=== PATIENT | female | born 1950 | race Caucasian/White ===

== ENCOUNTER 2016-10-20 05:35 | Day surgery (SDC) | payer MEDICARE ==
[~2016-10-20] VITALS: Ht 165.1 cm; Wt 112.0 kg
[~2016-10-20 05:35] MED LIST: ANTIVERT25 MG PO; COMBIVENT RESPIM4 GM INH; COZAAR50 MG PO; EXCEDRIN MIGRA1 EAC1 PO; FUROSEMIDE20 MG PO; NORCO 5-325 TA1 EACH PO; PREDNISONE20 MG PO; PROMETHAZINE HC25 M1 PO; PROVENTIL HFA6.7 GM INH; SEPTRA DS TABL1 EACH PO; VITAMIN D250000 UNIT PO; ZOFRAN ODT4 MG PO
[2016-10-20] MEDS ORDERED: BACTRIM DS TAB1 EACH PO (06:35)
--- NOTE | 2016-10-20 06:36 | NUR ---
UP TO BATHROOM. VOIDED 200ML URINE, NEGATIVE FOR STONES. BACK IN BED READING.
--- NOTE | 2016-10-20 09:01 | NUR ---
10/20/16 0900 Radha London 0854-PATIENT ARRIVED TO PACU ON 10L MASK O2 SAT 95% PATIENT NONAROUSABLE ORAL AIRWAY IN PLACE. 0858-PATIENT AROUSING RAISING LEFT ARM EYES OPENING ON COMMAND, ORAL AIRWAY REMOVED.
--- NOTE | 2016-10-20 10:45 | NUR ---
PT UP TO THE BATHROOM. 300ML VOID NOTED. PO PAIN MEDICATION GIVEN.
--- NOTE | 2016-10-20 12:05 | NUR ---
LE 0940 PT RETURNED FROM PACU. C/O URGE TO VOID. UP TO BATHROOM WITH ONE PERSON ASSIST. VOIDED 200ML RED COLORED URINE. BACK IN BED. WATER, CRACKERS AND JELLO GIVEN.
--- NOTE | 2016-10-27 11:39 | OR ---
[facility] [address] [place], [place] [address] Signed DATE OF SERVICE: 10/20/2016 PREOPERATIVE DIAGNOSIS: Left ureteral calculus. POSTOPERATIVE DIAGNOSES: Left distal ureteral calculus. Cutaneous yeast infection present on the external genitalia. NAMES OF PROCEDURES: Diagnostic cystoscopy with left retrograde pyelogram. Left semi-rigid ureteroscopy with laser lithotripsy of left ureteral calculus. Basket stone extraction of left ureteral calculus. Insertion of 6 x 24 cm contour double-J ureteral stent into the left ureter. SURGEON: El Allen MD. ANESTHESIA: General. ESTIMATED BLOOD LOSS: None. COMPLICATIONS: None. SPECIMENS: Ureteral stone fragments sent to the lab for stone analysis. INDICATIONS FOR PROCEDURE: Ms Gallegos is a very pleasant, 66-year-old female with no previous history of nephrolithiasis who presented to my clinic in approximately 2 weeks ago with a 4-day history of severe left-sided flank pain. She underwent a CAT scan on October 03, 2016, which revealed a 4 mm left mid ureteral calculus with associated mild hydronephrosis. At that time, her urine revealed no evidence of infection and the decision was made for her to attempt a trial passage of her stone. She underwent 2 followup KUBs, which revealed progressive distal migration of the stone. Late last week, the patient came in and repeat UA did reveal 75 leuks which to me was worrisome for possible urinary tract infection. At that point in time, the decision was made for the patient to undergo definitive extraction of her stone. OPERATIVE FINDINGS: On cystoscopy, there was no evidence of any suspicious masses, lesion s or stones within the bladder. The bilateral ureteral orifices are in their normal anatomic location. There is no obvious efflux of urine from the left ureteral orifice. A left retrograde pyelogram was performed, which revealed an approximately 4 mm filling defect in the distal left ureter, consistent with the known ureteral calculus. Electronically Signed By: EL ALLEN MD 10/27/16 7082 PATIENT NAME: FARIDA GALLEGOS OPERATIVE REPORT DATE OF : 50 PHYSICIAN: EL ALLEN MD REPORT #: [id number] REPORT IS CONFIDENTIAL AND NOT TO BE RELEASED WITHOUT AUTHORIZATION [facility] [address] [place] [id number] Signed The 4 mm stone was identified within the left distal ureter and fragmented using a 270 micron laser fiber without difficulty. The stone fragments were then extracted 1 by 1 from the ureter. A 6 x 24 cm contour double-J ureteral stent was inserted into the left ureter under direct visualization without difficulty. Examination of the external genitalia revealed a significant amount of well-delineated erythema in the vaginal area as well as moving to the bilateral groin areas, consistent with a cutaneous yeast infection. DESCRIPTION OF PROCEDURE: After informed consent was obtained. The patient was taken to the operating room. She was transferred from [facility] to operating table where general anesthesia was induced. She was placed in the dorsal lithotomy position. Her genitalia were prepped and draped in sterile fashion. A cystoscope was inserted through the urethra into her bladder and a diagnostic cystoscopy was performed. Please see above findings. The cone-tipped catheter was advanced to the level of the opening of the left ureteral orifice and left retrograde pyelogram was performed. Please see above findings. I then removed the cystoscope and then inserted a semi-rigid ureteroscope. The ureteroscope was easily passed into the distal left ureter and distal left diagnostic ureteroscopy was performed. The 4 mm stone was located in the distal left ureter and was fragmented using a 2 70 micron holmium laser fiber at the 8 and 0.8 energy settings. The stone fragmented easily and then the laser fiber was withdrawn. An escape basket was then inserted through the ureteroscope and the stones were extracted 1 by 1 from the patient's left distal ureter. This was performed without any difficulty. Once I was satisfied that all the stone fragments have been removed. I inserted a 0.035 Sensor wire through the ureteroscope and into the left collecting system. Fluoroscopy confirmed placement of the wire in the left kidney. The rigid ureteroscope was then removed. I then backloaded the wire into a cystoscope. Once the wire was in appropriate position, I passed a 6 x 24 cm contour double-J ureteral stent into the patient's left ureter under direct visualization without difficulty. Once I pulled the wire and adequate proximal coil was seen in the kidney on fluoroscopy and adequate proximal coil was seen distally on cystoscopy. The ureteral stone fragments were then extracted from the patient's bladder a n d placed in a specimen cup to be sent to the lab for stone analysis. The patient's bladder was then drained using the cystoscope and the cystoscope was removed. The procedure was terminated. The patient tolerated the procedure well without any complications. She will now be transferred to the Postanesthesia Care Unit in stable condition. PLAN: The patient will be discharged to home today in stable condition. She will continue her Kasson 7.5/325 p.r.n. pain as well as her Bactrim double strength b.i.d. until her medication is completed. I discussed the details of today's procedure with both the Electronically Signed By: EL ALLEN MD 10/27/16 1139 PATIENT NAME: GABRIELLEFARIDA M OPERATIVE REPORT DATE OF : 50 PHYSICIAN: EL ALLEN MD REPORT #: [id number] REPORT IS CONFIDENTIAL AND NOT TO BE RELEASED WITHOUT AUTHORIZATION [address] [place], [place] [address] Signed patient and her and answered all their questions. She will be scheduled to return to clinic in approximately 2 days to undergo cystoscopy with extraction of her indwelling left ureteral stent. We will discuss the results of her stone analysis at that time. El Allen MD AR/Modl /[id number] Electronically Signed By: EL ALLEN MD 10/27/16 1139 PATIENT NAME: FARIDA GALLEGOS OPERATIVE REPORT DATE OF : 50 PHYSICIAN: EL ALLEN MD REPORT #: [id number] REPORT IS CONFIDENTIAL AND NOT TO BE RELEASED WITHOUT AUTHORIZATION
== END 2016-10-20 11:05 | disposition home or self-care (01) ==
LOC: DS 05:35
PROVIDERS: Urology
PROC: 0TF78ZZ Fragmentation in Left Ureter, Via Natural or Artificial Opening Endoscopic (ICD-10-PCS; principal; 2016-10-20 06:45)
PROC: 0T778DZ Dilation of Left Ureter with Intraluminal Device, Via Natural or Artificial Opening Endoscopic (ICD-10-PCS; 2016-10-20 06:45)
DX: N13.2 Hydronephrosis with renal and ureteral calculous obstruction (principal); G43.909 Migraine, unspecified, not intractable, without status migrainosus; M79.7 Fibromyalgia; I10 Essential (primary) hypertension; E66.9 Obesity, unspecified; Z90.49 Acquired absence of other specified parts of digestive tract; Z90.710 Acquired absence of both cervix and uterus; Z98.890 Other specified postprocedural states; Z98.41 Cataract extraction status, right eye; Z98.42 Cataract extraction status, left eye; Z82.49 Family history of ischemic heart disease and other diseases of the circulatory system; Z68.41 Body mass index [BMI] 40.0-44.9, adult; Z88.5 Allergy status to narcotic agent; Z88.8 Allergy status to other drugs, medicaments and biological substances; Z79.899 Other long term (current) drug therapy
CPT/HCPCS: 00910; 74000; 76000; 82365; C2617; J0696; J1100; J1885; J2250; J2405; J2704; J2765; J3010; J7120

== ENCOUNTER 2017-03-20 16:56 | Emergency (ER) | payer MEDICARE ==
[~2017-03-20] VITALS: Ht 165.1 cm; Wt 112.0 kg
[~2017-03-20 16:56] MED LIST changes: +BACTRIM DS TAB1 EACH PO
[2017-03-20] MEDS ORDERED: OMEPRAZOLE20 MG PO (19:59)
--- NOTE | 2017-03-20 23:01 | EKG ---
[facility] [address] [facility] [place] [address] Signed Normal sinus rhythm Moderate voltage criteria for LVH, may be normal variant Borderline ECG When compared with ECG of 17-OCT-2016 13:36, No significant change was found Confirmed by ZHANE LEHMAN MD ([id number]) on 03/20/2017 11:00:51 PM Electronically Signed By: ZHANE LEHMAN MD 03/20/17 2301 PATIENT NAME: FARIDA ANTHONY Electrocardiogram DATE OF : 50 PHYSICIAN: ZHANE LEHMAN MD REPORT #: [id number] REPORT IS CONFIDENTIAL AND NOT TO BE RELEASED WITHOUT AUTHORIZATION
== END 2017-03-20 20:14 | disposition home or self-care (01) ==
LOC: ED 16:56
DX: R07.9 Chest pain, unspecified (principal); I10 Essential (primary) hypertension; Z88.8 Allergy status to other drugs, medicaments and biological substances; Z79.899 Other long term (current) drug therapy
CPT/HCPCS: 71020; 71260; 80053; 83690; 84484; 85025; 85379; 85610; 85730; 93005; 93010; 96374; 96375; 99284; J2405; J3010; Q9967

== ENCOUNTER 2017-07-30 20:22 | Emergency (ER) | payer MEDICARE ==
[~2017-07-30] VITALS: Ht 165.1 cm; Wt 112.0 kg
[~2017-07-30 20:22] MED LIST changes: +OMEPRAZOLE20 MG PO
[2017-07-30] MEDS ORDERED: VOLTAREN-XR100 MG PO (20:34)
--- NOTE | 2017-07-31 07:57 | EKG ---
[facility] [address] [place] [address] Signed Normal sinus rhythm Minimal voltage criteria for LVH, may be normal variant Borderline ECG When compared with ECG of 20-MAR-2017 17:01, No significant change was found Confirmed by IRMA MAYA MD ([id number]) on 07/31/2017 7:57:38 AM Electronically Signed By: IRMA MAYA MD 07/31/17 0757 PATIENT NAME: FARIDA ANTHONY Electrocardiogram DATE OF : 50 PHYSICIAN: IRMA MAYA MD REPORT #: [id number] REPORT IS CONFIDENTIAL AND NOT TO BE RELEASED WITHOUT AUTHORIZATION
== END 2017-07-30 23:12 | disposition home or self-care (01) ==
LOC: ED 20:22
DX: J20.9 Acute bronchitis, unspecified (principal); I10 Essential (primary) hypertension; Z91.048 Other nonmedicinal substance allergy status; Z88.8 Allergy status to other drugs, medicaments and biological substances; Z79.899 Other long term (current) drug therapy; Z79.82 Long term (current) use of aspirin; G43.909 Migraine, unspecified, not intractable, without status migrainosus
CPT/HCPCS: 71045; 80053; 84484; 85025; 93005; 93010; 94640; 99284

== ENCOUNTER 2019-03-17 07:09 | Emergency (ER) | payer OTHER, MEDICARE ==
[~2019-03-17] VITALS: Ht 165.1 cm; Wt 109.8 kg
[~2019-03-17 07:09] MED LIST changes: +ASPIRIN EC325 MG PO; +DICLOFENAC SODI75 MG PO; +GABAPENTIN300 MG PO; +GABAPENTIN600 MG PO; +MIRALAX17 GM PO; +OXYCODONE HCL5 MG PO; +SENNA LAX8.6 MG PO
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
[2019-03-17] MEDS ORDERED: CYCLOBENZAPRINE10 MG PO (09:09)
== END 2019-03-17 09:15 | disposition home or self-care (01) ==
LOC: ED 07:09
DX: S16.1XXA Strain of muscle, fascia and tendon at neck level, initial encounter (principal); I10 Essential (primary) hypertension; G43.909 Migraine, unspecified, not intractable, without status migrainosus; V89.2XXA Person injured in unspecified motor-vehicle accident, traffic, initial encounter
CPT/HCPCS: 72125; 99284-25

== ENCOUNTER 2019-06-19 17:16 | Emergency (ER) | payer MEDICARE ==
[~2019-06-19] VITALS: Ht 165.1 cm; Wt 109.8 kg
[~2019-06-19 17:16] MED LIST changes: +CYCLOBENZAPRINE10 MG PO
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
[2019-06-19] MEDS ORDERED: FLOMAX0.4 MG PO (18:32)
[2019-06-19] MEDS ORDERED: NORCO 5-325 TA1 EACH PO (18:32)
== END 2019-06-19 18:46 | disposition home or self-care (01) ==
LOC: ED 17:16
DX: N20.1 Calculus of ureter (principal); I10 Essential (primary) hypertension; Z87.442 Personal history of urinary calculi; Z90.89 Acquired absence of other organs; Z91.09 Other allergy status, other than to drugs and biological substances; Z88.8 Allergy status to other drugs, medicaments and biological substances; Z79.82 Long term (current) use of aspirin; Z79.899 Other long term (current) drug therapy
CPT/HCPCS: 80053; 81001; 85025; 96361; 96374; 99284-25; J2405; J7030

== ENCOUNTER 2019-11-10 13:24 | Emergency (ER) | payer MEDICARE ==
[~2019-11-10] VITALS: Ht 165.1 cm; Wt 106.6 kg
[~2019-11-10 13:24] MED LIST changes: +FLOMAX0.4 MG PO
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
[2019-11-10] MEDS ORDERED: SPIRONOLACTONE25 MG PO (13:37)
[2019-11-10] MEDS ORDERED: HYDROCHLOROTH12.5 MG PO (13:41)
[2019-11-10] MEDS ORDERED: DICLOFENAC SOD100 G1 TOP (13:43)
--- NOTE | 2019-11-10 16:11 | EKG ---
[facility] [address] [facility] [place] [address] Signed Normal sinus rhythm Minimal voltage criteria for LVH, may be normal variant Inferior infarct , age undetermined Cannot rule out Anterior infarct , age undetermined Abnormal ECG When compared with ECG of 30-JUL-2017 20:26, Inferior infarct is now present Nonspecific T wave abnormality now evident in Anterior leads Confirmed by IRMA MAYA MD ([id number]) on 11/10/2019 4:11:25 PM Electronically Signed By: IRMA MAYA MD 11/10/19 1611 PATIENT NAME: GABRIELLEFARIDA M Electrocardiogram DATE OF : 50 PHYSICIAN: IRMA MAYA MD REPORT #: [id number] REPORT IS CONFIDENTIAL AND NOT TO BE RELEASED WITHOUT AUTHORIZATION
[2019-11-10] MEDS ORDERED: OMEPRAZOLE20 MG PO (16:19)
== END 2019-11-10 17:18 | disposition home or self-care (01) ==
LOC: ED 13:24
DX: R07.9 Chest pain, unspecified (principal); I10 Essential (primary) hypertension; G43.909 Migraine, unspecified, not intractable, without status migrainosus; Z91.048 Other nonmedicinal substance allergy status; Z88.8 Allergy status to other drugs, medicaments and biological substances; Z79.899 Other long term (current) drug therapy; Z79.82 Long term (current) use of aspirin
CPT/HCPCS: 71045; 71260; 80053; 83690; 83735; 84484; 85025; 85379; 93005; 93010; 99285-25; J1170; Q9967

== ENCOUNTER 2020-03-05 05:45 | Day surgery (SDC) | payer MEDICARE ==
--- NOTE | 2020-02-22 16:54 | NUR ---
DOS: 03-05-20 PT HAS 2 STEPS INTO THE HOME HAS FWW, TRANSFERING SHOWER CHAIR, [employer] [employer] AND [facility] WILL HELP PATEINT AT HOME AND TRANSPORT TO PHYSICAL THERAPY PT ALSO HAS CANE 4 FOOTED
[~2020-03-05] VITALS: Ht 165.1 cm; Wt 114.0 kg
[~2020-03-05 05:45] MED LIST changes: +DICLOFENAC SOD100 G1 TOP; +HYDROCHLOROTH12.5 MG PO; +SPIRONOLACTONE25 MG PO
--- NOTE | 2020-03-05 06:52 | NUR ---
ASSISTED PRESTON SETTER JUICE PACKAGING MACHINES WITH BLOCK TO LEFT HIP. PATIENT CALM AND RELAXED. BED RAILS UP X2, PROVIDED INSTRUCTION NOT TO GET UP SECONDARY TO MEDICATION ADMINISTERED. CALL LIGHT WITHIN REACH. PROVIDED WARM BLANKET. DIMMED LIGHTS, PATIENT COMPLAINING OF HEAD ACHE. TXA ADMINISTERING.
--- NOTE | 2020-03-05 10:16 | NUR ---
PATIENT BACK TO [facility] FROM PACU. AWAKE ON AND OFF, ON 2L NC. PATIENT DRESSING TO LEFT HIP C/D/I. PATIENT REPORTS PAIN 3/10 ON PAIN SCALE. STRONG PEDAL PULSE, WARM EXTREMITY. CRYO IN PLACE. PATIENT REPORTS WAS SUPPOSE TO FIGURE OUT A WALKER FOR PATIENT TO USE FOR HOME USE. VERBALIZED TO PATIENT THAT CAN WOULD NOT SUFFICE. WILL FOLLOW UP WITH PATIENT'S .
--- NOTE | 2020-03-05 10:18 | NUR ---
03/05/20 1018 Krysten Leblanc 0904 PT ARRIVED IN PACU SLEEPY. OXYGEN SATS DROPPED TO 85% WITH COUGH, DEEP BREATHING. 0905 O2 AT 4L VIA NC PLACED AND SATS INCREASED TO 100% AFTER A FEW MINUTES. 0915 PELVIS XRAY DONE. 0923 C/O L HIP PAIN 5/10. TORADOL 15MG GIVEN IVP PER DR ORDER. 0935 NO CHANGE IN PAIN LEVEL. FENTANYL 50MCG GIVEN IVP. 0943 PAIN DOWN TO 4/10. FENTANYL 50MCG GIVEN IVP. CRYO CUFF PLACED. 1000 PAIN DOWN TO 3.5/10. PT TALKING TO STAFF. 1010 TO DS. REPORT GIVEN TO RN.
--- NOTE | 2020-03-05 10:50 | NUR ---
PATIENT STATES " MY HIP IS FEELING OUCHY AND GETTING WORSE" ADMINISTERED PAIN MEDICATION PER MAR. PROVIDED FRESH ICEWATER. PATIENT NOW ON RA SATURATION 98%. AWAKE AND WATCHING TELEVISION. CALL LIGHT WITHIN REACH. SPOKE WITH ON PHONE WHO IS NOW ON HIS WAY TO CLEAR WATER TO RENT A WALKER FOR HOME USE. PLANS TO DROP BY THE HOSPITAL AND STAFF WILL GO OUT TO FRONT AND METAL HANGING SUPERVISOR FROM HIM.
--- NOTE | 2020-03-05 11:30 | NUR ---
PLAN FOR PATIENT TO HAVE BUSINESS TRANSFORMATION MANAGER TO EVALUATE PATIENT BLOCK AND PAIN CONTROL. PATIENT RATING PAIN 6/10 ON PAIN SCALE. PATIENT AWAKE, APPEARS CALM. VSS. DRESSING C/D/I. KAMAR FUNCTIONINING WITH GREEN LIGHT. PATIENT ABLE TO FLEX FEET AND FEEL FOOT PUMPS WORKING. CRYO IN PLACE. CALL LIGHT WITHIN REACH.
--- NOTE | 2020-03-05 12:06 | NUR ---
DIETARY CALLED FOR PT LUNCH ORDER.
--- NOTE | 2020-03-05 12:18 | NUR ---
PHYSICAL THERAPY IN TO EVALUATE PATIENT, PATIENT APPEARS TO BE SLEEPING WITH EYES CLOSED. PATIENT AWOKE AND RATED PAIN 6/10. VERBALIZED TO PHYSICAL THERAPY THAT SALES REPRESENTATIVE JEWELRY WOULD BE EVALUATING BLOCK TO LEFT HIP, PHYSICAL THERAPY VERBALIZED PLAN TO RETURN TO PATIENT ROOM AROUND 1330. ORDERED PATIENT LUNCH. PATIENT SITTING UP EATING LUNCH, APPEARS CALM. CALL LIGHT WITHIN REACH. DRESSING IS C/D/I. CRYO IN PLACE. STRONG PEDAL PULSE AND WARM SKIN.
--- NOTE | 2020-03-05 13:30 | NUR ---
PATIENT AWAKE WATCHING TELEVISION AND FINISHING LUNCH. ARA NUT SHELLER INTO ROOM TO EVALUATE FOR RESCUE BLOCK TO LEFT HIP. AT THAT TIME PATIENT RATED PAIN 6/10 ON PAIN SCALE. AFTER RESCUE BLOCK COMPLETED PATIENT NOW RATES PAIN 1/10 ON PAIN SCALE. PATIENT REPORTS HAVING FEELING IN LOWER PART OF THE LEG. PLAN TO GET PATIENT UP TO [facility], AND WORK WITH PHYSICAL THERAPY. DRESSING C/D/I. STRONG PEDAL PULSE, EXTREMITIES WARM TO TOUCH.
--- NOTE | 2020-03-05 13:57 | OR ---
[facility] [address] [facility] [place] [address] Signed DATE OF OPERATION: 03/05/2020 SURGEON: Marcello Heller MD PREOPERATIVE DIAGNOSIS: Degenerative joint disease, left hip. POSTOPERATIVE DIAGNOSIS: PROCEDURE PERFORMED: Left total hip arthroplasty. PACKAGER HEAD: Adelia Rajput PA-C. ANESTHESIA: Spinal. Adelia was present for all portions in the procedure was critical in performing these. BLOOD LOSS: 250 mL. IMPLANTS: Audra Accolade II size 5 with a 52 pinnacle cup and -2.5 head. BRIEF HISTORY: Araceli is a 69-year-old female with bilateral hip arthritis. She had undergone successful right total hip and wished to proceed with a left. Risks, benefits, and alternatives of operative treatment were discussed with her. She elected to proceed. DESCRIPTION OF PROCEDURE: Once consent was obtained, she was taken to the operating room after adequate anesthesia. She was placed on operating room table, all downside pressure points were well padded. She was put in the right lateral decubitus position, axillary roll was placed. The hip was prepped and draped in a standard sterile fashion up to the ribcage. The computer ray for the Kris robot was then placed in the ASIS, three fingerbreadths posterior to the ASIS in the iliac crest. Attention was turned to the hip and this was approached through standard anterolateral approach. The skin and subcutaneous tissue were incised longitudinally. The IT band was divided. The vastus lateralis was split Electronically Signed By: MARCELLO HELLER MD 03/05/20 1357 PATIENT NAME: ARACELI ANTHONY OPERATIVE REPORT DATE OF : 50 REPORT #: [id number] PHYSICIAN: MARCELLO HELLER MD PCP: ANTONIO MCMILLAN MD REPORT IS CONFIDENTIAL AND NOT TO BE RELEASED WITHOUT AUTHORIZATION [facility] [address] [place] [id number] Signed from the tip of the trochanter distally and elevated in a subperiosteal manner around the level of the lesser trochanter. The gluteus medius was split bluntly. Gluteus minimus and capsule were split sharply and taken to the acetabular rim. This was then peeled off anteriorly. The periarticular soft tissue was removed and the femoral neck cut was marked one fingerbreadth above the lesser trochanter. The Kris checkpoint was placed in the greater trochanter and the leg lengths were established with the computer. The femoral neck cut was then made, the femoral head was dislocated and passed off the table. The remaining periarticular soft tissue was removed. The acetabulum was then cleared of soft tissue in the medial portion. We then established the fine anatomical points of the acetabulum with the computer. Once this was accomplished, the robot was brought in and the acetabulum was reamed starting with 48 going to 50. The bone was fairly soft. We impacted the cup in 40 degrees of abduction and 20 degrees of anteversion and put two screws in posterior superior quadrant with excellent purchase. The polyethylene was snapped into position and the attention was turned to proximal femur. The top of the greater trochanter was cleaned off and the mohamudNeohapsis cutter was used to open the proximal femur. This was then opened using the Charnley awl and the curved curette. We then sequentially broached from 1 up to a 5 and the 5 being quite well fitting. The high offset head and -2.5 ball were placed. The hip was reduced, was found to be 5 mm long by the computer, however, had good stability. It was not overly tight. We dislocated the hip and removed the trials. The final size 5 stem was impacted until it was well seated as deep as I could get it. We then placed a -2.5 head on it and impacted it, reduced it and it was 5 mm longer with slight change in the offset. The wound was copiously irrigated with normal saline. We did put 1 L of Irrisept in, let it percolate 2 minutes, and then irrigated it out. The capsule was then closed using #2 Vicryl. The vastus and IT band layers were closed independently using #2 Stratafix. The subcutaneous tissue was closed in layers using #1 Vicryl and #1 Stratafix. The skin was closed with navin. Wound was dressed with a KAMAR wound VAC dressing with Flex Acticoat underneath it. She was awakened, taken to the recovery room in satisfactory condition. All sponge, needle, and instrument counts were correct. Marcello Heller MD BA/MODL /[id number] Electronically Signed By: MARCELLO HELLER MD 03/05/20 1357 PATIENT NAME: ARACELI ANTHONY OPERATIVE REPORT DATE OF : 50 REPORT #: [id number] PHYSICIAN: MARCELLO HELLER MD PCP: ANTONIO MCMILLAN MD REPORT IS CONFIDENTIAL AND NOT TO BE RELEASED WITHOUT AUTHORIZATION [facility] [address] [place], [place] [address] Signed Copies: ~ Electronically Signed By: MARCELLO HELLER MD 03/05/20 1357 PATIENT NAME: ARACELI ANTHONY OPERATIVE REPORT DATE OF : 50 REPORT #: [id number] PHYSICIAN: MARCELLO HELLER MD PCP: ANTONIO MCMILLAN MD REPORT IS CONFIDENTIAL AND NOT TO BE RELEASED WITHOUT AUTHORIZATION
--- NOTE | 2020-03-05 14:08 | NUR ---
PATIENT UP TO [facility] VOIDED 500ML URINE. PATIENT STEADY ON FEET WITH WALKER. PHYSICAL THERAPY INTO ROOM, PATIENT THEN AMBULATED OUT INTO [place] AND SAT IN WHEELCHAIR. RATED PAIN 2/10 ON PAIN SCALE, TOLERABLE. PATIENT LEFT UNIT TO WORK WITH PHYSICAL THERAPY TO PRACTICE STAIRS.
[2020-03-05] MEDS ORDERED: CELECOXIB200 MG PO (14:12)
[2020-03-05] MEDS ORDERED: GABAPENTIN300 MG PO (14:13)
[2020-03-05] MEDS ORDERED: OXYCODONE HCL5 MG PO (14:13)
[2020-03-05] MEDS ORDERED: STOOL SOFTENER1 EAC4 PO (14:13)
[2020-03-05] MEDS ORDERED: ACETAMINOPHEN500 MG PO (14:13)
--- NOTE | 2020-03-05 15:30 | NUR ---
PATIENT BACK IN ROOM FROM PHYSICAL THERAPY, OKAYED TO GO HOME. SHAYAN ADVISED PATIENT TO MAKE SHORT TRIPS AT HOME FOR PAIN CONTROL. ATTEMPTED TO CALL TO UPDATE HIM. INITIATED DISCUSSING DISCHARGE OVER THE PHONE WITH THE PATIENT'S AND HE STATED " NO!" I ASKED IF HE WANTED TO HEAR DISCHARGE OUT AT HIS CAR AND HE SAID " NO!". I THEN INFORMED THAT PERSCRIPTIONS WOULD BE READY AT PHARMACY. YELLED AT NURSE ON THE PHONE, BUT VERBALIZED UNDERSTANDING THAT PERSCRIPTIONS WOULD BE READY FOR PICK-UP.
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
== END 2020-03-05 16:15 | disposition home or self-care (01) ==
LOC: DS 05:45
PROVIDERS: ATTEND Specialist
PROC: 8E0Y0CZ Robotic Assisted Procedure of Lower Extremity, Open Approach (ICD-10-PCS; 2020-03-05)
PROC: 3E0T3BZ Introduction of Anesthetic Agent into Peripheral Nerves and Plexi, Percutaneous Approach (ICD-10-PCS; 2020-03-05)
PROC: 3E0T33Z Introduction of Anti-inflammatory into Peripheral Nerves and Plexi, Percutaneous Approach (ICD-10-PCS; 2020-03-05)
PROC: 0SRB04A Replacement of Left Hip Joint with Ceramic on Polyethylene Synthetic Substitute, Uncemented, Open Approach (ICD-10-PCS; principal; 2020-03-05 06:45)
DX: M16.12 Unilateral primary osteoarthritis, left hip (principal); G89.18 Other acute postprocedural pain; I10 Essential (primary) hypertension; G43.909 Migraine, unspecified, not intractable, without status migrainosus; E55.9 Vitamin D deficiency, unspecified; E66.9 Obesity, unspecified; Z79.899 Other long term (current) drug therapy; Z91.048 Other nonmedicinal substance allergy status; Z88.8 Allergy status to other drugs, medicaments and biological substances; Z88.6 Allergy status to analgesic agent; Z96.653 Presence of artificial knee joint, bilateral; Z96.641 Presence of right artificial hip joint; Z79.1 Long term (current) use of non-steroidal anti-inflammatories (NSAID); Z91.041 Radiographic dye allergy status; Z87.891 Personal history of nicotine dependence; Z79.82 Long term (current) use of aspirin; Z68.39 Body mass index [BMI] 39.0-39.9, adult
CPT/HCPCS: 01214; 72170; 97110; 97161; J0690; J1100; J1885; J2001; J2250; J2704; J2795; J3010; J7121

== ENCOUNTER 2020-03-24 11:22 | Emergency (ER) | payer MEDICARE ==
[~2020-03-24] VITALS: Ht 165.1 cm; Wt 113.9 kg
[~2020-03-24 11:22] MED LIST changes: +ACETAMINOPHEN500 MG PO; +CELECOXIB200 MG PO; +STOOL SOFTENER1 EAC4 PO
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
== END 2020-03-24 12:08 | disposition home or self-care (01) ==
LOC: ED 11:22
DX: M96.89 Other intraoperative and postprocedural complications and disorders of the musculoskeletal system (principal); G43.909 Migraine, unspecified, not intractable, without status migrainosus; I10 Essential (primary) hypertension; Z87.891 Personal history of nicotine dependence; Z91.048 Other nonmedicinal substance allergy status; Z88.8 Allergy status to other drugs, medicaments and biological substances; Z79.899 Other long term (current) drug therapy
CPT/HCPCS: 99283

== ENCOUNTER 2020-11-04 22:24 | Emergency (ER) | payer OTHER, MEDICARE ==
[~2020-11-04] VITALS: Ht 165.1 cm; Wt 113.8 kg
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
== END 2020-11-04 23:23 | disposition home or self-care (01) ==
LOC: ED 22:24
DX: S63.502A Unspecified sprain of left wrist, initial encounter (principal); X50.9XXA Other and unspecified overexertion or strenuous movements or postures, initial encounter; M06.9 Rheumatoid arthritis, unspecified; G43.909 Migraine, unspecified, not intractable, without status migrainosus; I10 Essential (primary) hypertension; M19.90 Unspecified osteoarthritis, unspecified site; Z87.891 Personal history of nicotine dependence; Z91.048 Other nonmedicinal substance allergy status; Z88.8 Allergy status to other drugs, medicaments and biological substances; Z79.899 Other long term (current) drug therapy; Z79.82 Long term (current) use of aspirin
CPT/HCPCS: 73110; 99283-25

== ENCOUNTER 2024-07-29 12:48 | Emergency (ER) | payer MEDICARE, OTHER ==
[~2024-07-29] VITALS: Ht 165.1 cm; Wt 115.8 kg
[~2024-07-29 12:48] MED LIST changes: +ATORVASTATIN CA20 MG PO; +CEFDINIR300 MG PO; +CIPRO500 MG PO; +EXCEDRIN EXTRA1 EAC1 PO; +ISOSORBIDE MONO30 MG PO; +LOSARTAN-HCTZ1 EAC1 PO; +MIRALAX119 GM PO; +ONDANSETRON HCL4 MG PO; +PERCOCET 5-3251 EACH PO; +SENOKOT-S TABL1 EACH PO; -VITAMIN D250000 UNIT PO; +VITAMIN D325 MCG PO; +ZESTORETIC 20-1 EAC1 PO
[2024-07-29 13:13] LABS: BILIRUBIN, URINE NEGATIVE (negative); BLOOD/HGB, URINE SMALL (Negative); KETONE, URINE NEGATIVE (Negative); LEUK ESTERASE, URINE TRACE (negative); NITRITE, URINE POSITIVE (negative)
[2024-07-29] MEDS ORDERED: KETOROLAC TROMETHAMINE 15 MG/ML VIAL IV ONE (13:15)
[2024-07-29] MEDS ORDERED: ondansetron HCL 4 MG/2 ML VIAL IV PRN (13:15)
[2024-07-29 13:27] LABS: BACTERIA, URINE 3+ /hpf (negative); CASTS, URINE NONE SEEN \\lpf; CRYSTALS, URINE NONE SEEN (0-1+); EPITHELIAL CELLS, URINE SQUAMOUS 3+ /lpf (0-1+)
[2024-07-29 13:27] LABS: BASOPHILS 1.2 % (0-2); EOSINOPHILS 3.6 % (0-6); HEMATOCRIT 43.1 % (35.0-50.0); HEMOGLOBIN 14.9 g/dL (12.0-18.0); LYMPHOCYTES 23.3 % (24-44); MCH 27.8 (27-36); MCHC 34.6 g/dl (30-36); MCV 80.3 fl (81-99); MONOCYTES 7.1 % (0-12); NEUTROPHILS 64.8 % (39-80); PLATELET COUNT 204 K/uL (140-440); RBC 5.37 M/ul (4.3-5.7)
[2024-07-29 13:28] LABS: COLLECTION TYPE, URINE CLEAN CATCH; REFLEX CULTURE, URINE No (No)
[2024-07-29] MEDS ORDERED: COLACE100 MG PO (13:34)
[2024-07-29 13:51] LABS: ALBUMIN 3.7 g/dL (3.4-5.0); ANION GAP 13.8 (7-21); BILIRUBIN, TOTAL 0.8 mg/dL (0.2-1.0); BUN/CREATININE RATIO 18.29 (6.0-28.6); CREATININE, SERUM 0.82 mg/dL (0.55-1.02); POTASSIUM 3.8 mmol/L (3.5-5.1); PROTEIN, TOTAL 7.4 g/dL (6.4-8.2)
[2024-07-29] MEDS ORDERED: MORPHINE SULFATE 4 MG/ML VIAL IV ONE (14:00)
[2024-07-29] MEDS ORDERED: HYDROmorphone HCL 1 MG/ML SYR IV ONE (16:15)
[2024-07-29] MEDS ORDERED: PERCOCET 5-3251 EACH PO (16:20)
[2024-07-29] MEDS ORDERED: ONDANSETRON ODT4 MG PO (16:20)
[2024-07-29] MEDS ORDERED: OXYCODONE/ACETAMINOPHEN 1 TAB HOME.PACK PO ONE (16:30)
[2024-07-29] MEDS ORDERED: ONDANSETRON 4 MG HOME.PACK SL ONE (16:30)
[2024-07-29 17:06] VITALS: BP 161/109
== END 2024-07-29 17:06 | disposition home or self-care (01) ==
LOC: ED 12:48
PROVIDERS: Emergency Medicine
DX: N20.1 Calculus of ureter (principal); Z87.891 Personal history of nicotine dependence; Z79.899 Other long term (current) drug therapy
CPT/HCPCS: 36415; 74176; 80053; 81001; 85025; 96374; 96375; 99284-25; A9270; J1171; J2270; J2405